=== PATIENT | female | born 1950 | race Caucasian/White ===

== ENCOUNTER 2024-04-09 20:15 | Emergency (ER) | payer MEDICARE, SELFPAY ==
[2024-04-09 20:26] VITALS: BP 134/95
[2024-04-09 20:43] LABS: % Basophils 0.3 % (0-2); % Eosinophils 0.1 % (0-6); % Immature Granulocytes 0.4 % (0-0.5); % Monocytes 3.6 % (1.7-9.3); % Neutrophils 87.6 % (42.2-75.2); Absolute Basophils 0.1 10^3/uL (0-0.2); Absolute Immature Granulocytes 0.1 10^3/uL (0-0.05); Absolute Lymphocytes 1.2 10^3/uL (1.2-3.4); Absolute Monocytes 0.5 10^3/uL (0.1-0.6); Absolute Neutrophils 12.6 10^3/uL (1.4-6.5); Hematocrit 45.3 % (37.0-47.0); Hemoglobin 15.8 g/dL (12.0-16.0); Mean Corp Hgb Conc. 34.9 g/dL (33.0-37.0); Mean Corpuscular Hgb 31.8 pg (27.0-31.0); Mean Corpuscular Volume 91.1 fL (81.0-99.0); Nucleated Red Blood Cells % 0 %; Platelet Count 343 10^3/uL (130-400); Red Blood Cell Count 4.97 10^6/uL (4.20-5.40); Red Cell Dist. Width 13.2 % (11.5-14.5); White Blood Cell Count 14.4 10^3/uL (4.8-10.8)
[2024-04-09 21:19] LABS: ALT (SGPT) 23 U/L (0-35); AST (SGOT) 31 U/L (14-36); Albumin 4.8 g/dl (3.5-5.0); Alkaline Phosphatase 84 U/L (38-126); Blood Urea Nitrogen 22 mg/dl (7-17); Calcium 9.7 mg/dl (8.4-10.2); Carbon Dioxide 24 mmol/L (22-30); Chloride 105 mmol/L (98-107); Glucose 133 mg/dl (70-99); Potassium 3.8 mmol/L (3.5-5.1); Sodium 140 mmol/L (135-145); Total Bilirubin 0.9 mg/dl (0.2-1.3); eGFR > 60.00
[2024-04-09 21:31] LABS: Lipase 45 U/L (23-300)
--- NOTE | 2024-04-09 22:09 | ED.GENMED ---
History of Present Illness
General
Chief Complaint: Abdominal Symptoms
Source: patient
Exam Limitations: none
Time Seen by Provider: 04/09/24 21:19
Nursing documentation reviewed up to this point in time: agreed with
History of Present Illness
History of Present Illness:
Patient presents to ED secondary to sudden onset of left lower back pain which woke the patient up from sleep early this morning. Patient has had similar back pain in the past. Patient states that she recently moved up from [place] where
everything was on first floor. She is currently living in the basement, and has been walking up and down the stairs quite frequently after she moved, which may have contributed to her lower back pain. Denies direct trauma. Denies fever or chills.
Denies loss of sensation or weakness. Denies urinary or bowel incontinence. In addition, patient reports eating blue cheese at nighttime, which may have been 'bad'. When she woke up this morning she has had persistent queasy sensation with
multiple vomiting episodes. Denies diarrhea. Denies abdominal pain. Patient reports generalized weakness.
Review of Systems
Review of Systems
Allergies reviewed?: Yes
All Other Systems: ROS reviewed and negative except as documented in HPI and ROS
Constitutional: Reports no symptoms
EENT: Reports no symptoms
Respiratory: Reports no symptoms
Cardiac: Reports no symptoms
ABD/GI: Reports nausea and vomiting; Denies abdominal pain or diarrhea
: Denies incontinence
Musculoskeletal: Reports back pain
Skin: Reports no symptoms
Neurological: Reports no symptoms
Phy Exam
Physical Exam
Physical Exam:
Physical Exam
General: mild painful distress, not acutely ill. afebrile
Head: nc/at. eomi
Neck: supple. no meningeal signs.
Heart: s1/s2 regular rate and rhythm, no murmur. equal radial pulses.
Lungs: no acute respiratory distress. clear bilaterally
Abdomen: normal bowel sounds. not tender. no distention
Neuro: alert and oriented. no focal neurological deficits
Skin: no rash
Psychiatric: well kept. interactive and cooperative
Extremities: no edema. no calf tenderness.
Course
Orders/Labs/Results
Orders:
Orders
04/09/24 20:25
IV Insert/Care/Rem.- Treatment PRN
04/09/24 20:36
Complete Blood Count/With Diff Urgent
Comprehensive Metabolic Panel Urgent
Lipase Urgent
04/09/24 21:27
Dexamethasone Sod Phosphate [Decadron] 10 mg IV NOW STA
Ketorolac [Toradol] 15 mg IV NOW STA
Ondansetron Injectable [Zofran] 4 mg IV NOW STA
Pantoprazole [Protonix IV] 40 mg IV NOW STA
04/09/24 21:28
0.9% Sodium Chloride 1000 ml [Nss] 1,000 ml IV BOLUS
04/09/24 23:05
Urinalysis Reflex To Culture Urgent
Date Specimen was Collected: 04/09/24
Time Specimen was Collected: 20:25
Urine Microscopic Reflex Cult Urgent
Urine Culture Urgent
CRISTOBAL Source: U
Specimen Description:
Date Specimen was Collected: 04/09/24
Time Specimen was Collected: 20:25
04/10/24 00:02
0.9% Sodium Chloride 500 ml [Nss] 500 ml IV BOLUS
04/10/24 00:15
CT Abd/pel Without Iv Or Oral Urgent
Reason For Exam: left flank/back pain w hematuria
04/10/24 00:59
Tramadol HCl [Ultram] 50 mg PO NOW STA
04/10/24 01:00
Flush (0.9% Sodium Chloride) [Flush (Nss)] See Dose Instructions IV PER PROTOCOL
Abnormal Lab Results
04/09/24 04/09/24
20:36 23:05
WBC 14.4 H 10^3/uL
(4.8-10.8)
MCH 31.8 H pg
(27.0-31.0)
Abs Immat Gran (auto) 0.1 H 10^3/uL
(0-0.05)
Absolute Neuts (auto) 12.6 H 10^3/uL
(1.4-6.5)
Neutrophils % 87.6 H %
(42.2-75.2)
Lymphocytes % 8.0 L %
(20.5-51.1)
BUN 22 H mg/dl
(7-17)
Glucose 133 H mg/dl
(70-99)
Urine Ketones 3+ A
(Negative)
Ur Occult Blood Reflex 4+ A
(Negative)
Urine RBC 30-40 A /HPF
(0-2)
Urine Bacteria (Reflex) Moderate A
(Negative)
04/09/24 20:36
04/09/24 20:36
Vital Signs
Initial and Last Documented VS:
Initial Vital Signs
Temp Pulse Resp BP Pulse Ox
98.7 F 84 17 134/95 98
04/09/24 20:26 04/09/24 20:26 04/09/24 20:26 04/09/24 20:26 04/09/24 20:26
Last Documented Vital Signs
Temp Pulse Resp BP Pulse Ox
98.7 F 84 17 134/95 98
04/09/24 20:26 04/09/24 20:26 04/09/24 20:26 04/09/24 20:26 04/09/24 20:26
MDM/Problems Addressed
MDM/Problems Addressed:
CT abd/pel: no acute findings.
History and exam consistent with likely recurrent lower back pain, likely secondary to recent change in living, along with frequent walking up and down the stairs. In addition vomiting episodes, likely secondary to food reaction, less likely
infectious etiology. UA noted, however, patient without any UTI symptoms. As such, will withhold antibiotics at this time, while waiting for urine culture result.
Patient is afebrile, hemodynamically stable, and appears comfortable, at time of discharge, to the care of her family.
*Critical Care Note
Total Time (30-74mins, 75-104mins- exclusive of procedures): Not Applicable
ED Attending Note
-
Portions of this chart may have been created with voice recognition software.� Occasional wrong word or��sound alike� substitutions may have occurred due to the inherent limitations of voice recognition software.
Discharge Plan
Departure
Patient Disposition: Home (Routine Discharge)
Date of Disposition: 04/10/24
Time of Disposition: 00:59
Patient with high blood pressure during this ER visit?: Yes
Discharge Problem:
Back pain, Nausea & vomiting
Instructions: Nausea and vomiting in adults, Back Pain
Prescriptions:
New
tramadol 50 mg tablet
50 mg PO Q8H PRN (Reason: Pain) Qty: 20 0RF
ondansetron 4 mg Tablet,Disintegrating
4 mg PO TIDPRN PRN (Reason: nausea/vomiting) Qty: 12 0RF
methylprednisolone [Medrol (Levi)] 4 mg tablets,dose pack
4 mg PO DAILY Qty: 21 0RF
Referrals:
NONE,* [Family Provider] -
Activity Restrictions/Additional Instructions:
As discussed, please follow-up with your primary care physician for further evaluation and treatment. Your prescriptions have been sent electronically to [facility] pharmacy in [place].
Interventions
Interventions:
*Risk Screen - Suicide Last Done: 04/09/24 20:26
*General Assessment Last Done: 04/09/24 20:26
*Neglect/Abuse Screening Last Done: 04/09/24 20:26
ED- Fall Risk Assessment Last Done: 04/09/24 23:10
GY-Bseimt-Dzfycrlvos Assessment Last Done: 04/09/24 23:10
Discharge Date and Time
Print Language: KOREAN
[2024-04-09] MEDS: TORADOL 15 MG IV (22:39)
[2024-04-09] MEDS: DECADRON 10 MG IV (22:39)
[2024-04-09] MEDS: PROTONIX IV 40 MG IV (22:40)
[2024-04-09] MEDS: ZOFRAN 4 MG IV (22:40)
[2024-04-09] MEDS: NSS 1000 IV (22:40)
[2024-04-09 23:10] VITALS: BMI 23.4
[2024-04-09 23:23] LABS: Urine Albumin Trace (Neg - Trace); Urine Bilirubin Negative (Negative); Urine Character Clear (Clear); Urine Color Yellow; Urine Glucose Negative (Negative); Urine Ketone 3+ (Negative); Urine Leukocyte Negative (Negative); Urine Nitrite Negative (Negative); Urine Occult Blood 4+ (Negative); Urine Specific Gravity 1.025 (<1.030); Urine Urobilinogen Negative (Neg - 1+)
[2024-04-09 23:41] LABS: Urine Bacteria Moderate (Negative); Urine Red Blood Cell 30-40 /HPF (0-2); Urine Squamous Cell 0-2 /LPF (Few)
[2024-04-10] MEDS: NSS 500 IV (00:50)
[2024-04-10] MEDS: ULTRAM 50 MG PO (01:10)
== END 2024-04-10 01:45 | disposition home or self-care (01) ==
LOC: EMR 20:15
PROVIDERS: Emergency Medicine; EMERGENCY PHYSICIAN Emergency Medicine
DX: M54.50 Low back pain, unspecified (principal); R11.2 Nausea with vomiting, unspecified; R53.1 Weakness
CPT/HCPCS: 99283; 96374; 96375; 96361; 96360; 74176; 80053; 81003; 81015; 83690; 85025; 87086

== ENCOUNTER → 2024-04-28 13:48 | Outpatient (REF) | payer MEDICARE, SELFPAY | LOC: HWRAD 13:48 | PROVIDERS: ATTENDING PHYSICIAN Registered Nurse | DX: M05.9 Rheumatoid arthritis with rheumatoid factor, unspecified (principal) | CPT/HCPCS: 71046; 73110; 73130; 73565 ==